=== PATIENT | female | born 1970 | race Caucasian/White ===

== ENCOUNTER 2023-12-20 09:23 | Inpatient (IN) | payer BC ==
[~2023-12-20 09:23] MED LIST: ONDANSETRON 4 MG/2 ML VIAL IVP PRN; TRANEXAMIC 1,000 MG/100ML-NACL 1,000 MG in SALINE 1 100ML.BAG IVPB PRN
[2023-12-20] MEDS ORDERED: LIDOCAINE 1% (10MG/ML) FOR IV START INTRADERMA PRN (09:36)
[2023-12-20] MEDS ORDERED: fentaNYL (PF) 50 MCG/ML 2 ML AMP IV PRN (09:36)
[2023-12-20 10:10] LABS: Glucose,Whole Blood 90 mg/dL (70-110)
--- NOTE | 2023-12-20 10:21 | P.HPOR ---
History of Present Illness H&P Date: 12/15/23 Chief Complaint: CERVICAL SPONDYLOSIS, SPONDYLOLISTHESIS, STENOSIS .D:Date: 12/15/23 : 09:19am .T:Title: EDIS CANTU [facility] HISTORY AND PHYSICAL Age: 53 year Height: 5'1" Weight: 140 lbs BMI: 26.45 kg/m2 Occupation: VAS: 7 IMPRESSION: It was my pleasure to have seen and examined Jennifer. I reviewed the patient's clinical syndrome, physical findings, and imaging studies during the appointment today. It is my impression that the patient has a diagnosis of. 1. C4-5 grade I unstable spondylolisthesis with stenosis 2. C4-7 spondylosis with stenosis 3. BUE Radiculopathy L>R 4. BUE weaknessL>R Spine Surgery Risk Review Ms. Wilkes is presenting for evaluation of neck and left upper extremity pain, left upper extremity numbness and tingling. It was my pleasure to have seen and examined Ms. Wilkes. In our visit today we have had a chance to go over subjective complaints, physical examination findings and treatments including the natural course history without intervention and various interventional options. The patients imaging demonstrates: XR and MRI show C4-5 grade I, unstable, spondylolisthesis with stenosis that is moderate to severe. There is moderate to severe stenoisis noted at C5-6 as well due to disc bulge and spondylosis changes. There is spondylosis noted at C6-7 as well with mild to moderate central stenosis. No fractures or lesions noted. C0-1 and C1-2 are stable. On physical exam, Ms. Wilkes demonstrates: Severe pain with motion of her neck. Myotonic 'Jerks" of her neck that intensify her pain. She has difficulty with fine motor skills, she is dropping things at home and unable to hold onto her pen in the room. She states progressive difficulty with ADLs like brushing her teethe and combing her hair due to pain and weakness. She has 4/5 strength in her UE b/l as well as diminished relfexes throughout her UE and LE. She has Positive Spurlung's as well as dermatomal LT deficits. I have explained to the patient that as their condition progresses it will cause further neurological deficits and eventual paralysis. Based on the patients imaging, physical exam, and the rapid progression and disabling nature of their symptoms, at this time I recommend surgery in the form of a: C4-6 ANTERIOR CERVICAL DISCECTOMY AND FUSION. I discussed the risk and benefits of this procedure at length with Ms. Wilkes. The patient agreed to considered pursuing the procedure abovementioned. Prior to surgery, she should follow up with her PCP (Cardio, ID, IM etc) for clearance. Questions were invited and answered, and the patient wishes to proceed as outlined below. Currently, I am recommendin.C4-6 ANTERIOR CERVICAL DISCECTOMY AND FUSION 2.Review of surgical risks and benefits as well as an educational packet on the proposed surgical procedure. Risks: All surgical procedures come with inherent risks, including those related to positioning, anesthesia, intraoperative findings, and postoperative complications. It is important to understand that surgery does not come with any guarantee of a successful outcome as complications and adverse events are always possible. The patient was given a handout in office today discussing the surgical procedu re and risks associated with the intervention, both of which were discussed with the patient. These risks include but are not limited to the following: * Experiencing same, different or even worse symptoms in back, neck, arms, or legs compared to before surgery. Requiring further surgery or other forms of treatment presently or at some time in the future at same or other levels of the intended spine surgery. On an extreme but fortunately relatively rare basis severe complication such as blindness, stroke, heart attack, temporary and/or permanent nerve injury, paralysis, coma, or may occur, sometimes without known explanation. Surgical complications may include but are not limited to risk of infection, fluid accumulation in the surgical dissection site, including a seroma or hematoma, that requires additional surgery, wound drainage, bleeding, new numbness or weakness, vision changes/loss, spinal fluid leakage, non-healing and/or infected incision, headaches, difficulty or inability to swallow, hoarseness, hemopneumothorax, pneumothorax, impotence, retrograde ejaculation, vaginal dryness; injury to nerves, spinal cord, blood vessels, lymphatics or other vital organs (i.e., bowel injury, injury to the great vessels); heterotopic bone formation; complications related to the hardware such as screws, rods, cages including misplaced hardware, device failure, instrumentation at the wrong spine level, hardware fracture/breakage, or hardware loosening; vertebral failure of the spinal column above or below the newly placed hardware; retained surgical instrumentations or devices and the need for further surgery. * Medical risks of the planned spine surgery include but are not limited to generalized Infections to the whole body or local areas outside of the surgical site (sepsis), heart attack, bleeding, anaphylaxis, meningitis, seizure, epilepsy, hearing loss, burn diop, laceration of the head or other areas of the body, bruising, hypersensitivity of the skin, bladder over distension; allergic reaction; shoulder injury related to positioning; fat, blood and air clots to other areas of the body like heart, lungs, brain; failure of internal organs such as lungs, kidneys, liver and excessive bleeding. If blood transfusions are necessary, note that transfusions may cause intolerance reactions such as anaphylaxis or other complex reactions. Despite best efforts, the results of spine surgery might not heal in terms of bone, soft tissues such as skin, fascia, ligaments, and joints. Additionally, in order to achieve best possible results, spine surgery may be carried out beyond the initially planned levels and involve decompression, fusion including insertion of hardware at levels other than the original intended area of surgical interest change some portions of the procedure in order to ensure the best possible outcomes. With spine surgery and spinal fusion, there are different off label uses of instrumentation (devices, implants and hardware) as well as biological substances (bone morphogenic proteins, demineralized bone matrix) as well as using extra bone from allograft sources (i.e. cadaver bone) or autograft (iliac crest bone, ribs, or the spine itself). The patient has been given information about these practices and their inherent risks and benefits. [facility] is an educational center that serves as a training facility for neurosurgical and orthopedic [employer] and Nursing students. Physician assistants are medically trained surgical providers who function in the outpatient, inpatient, and operating room setting under the direct supervision of the attending surgeon. [facility] has multiple operating rooms with single and overlapping rooms running daily. They currently function under the required guidelines as produced by the [facility] with regards to the overlapping rooms and will continue to comply with changes to this policy as they occur. The requirements include and are complied with as follows: (1) the critical portions of the overlapping rooms will not occur at the same time, (2) the attending physician will be physically present during the critical portions of the procedure and immediately available during the entire case, and (3) a back-up attending is designated should the primary attending not be immediately available. The patient has had a chance to review all the listed information, has been given print outs detailing this information, and has had all his/her questions answered to their satisfaction. It was my pleasure to have seen and examined Ms. Wilkes. In our visit today we have had a chance to go over my understanding of our patient's current condition, the natural course history without intervention and various interventional options. Questions were invited and answered, and the patient wishes to proceed as outlined above. I have seen and examined the patient for 25 minutes and we have spent more than 50% of the time in repeat and detailed counseling about the patient's condition, its natural course history with out and as much as can be predicted with surgery and re-review of various surgical treatment options. In conclusion, Ms. Wilkes requested we proceed with the above suggested surgery and are willing to accept risks and limitations of the suggested surgery as nature of the disease process and our best attempts at treatment for the condition. Thank you again for allowing us to be part of your patient's care. Please don't hesitate to contact me if you have any further questions. FOLLOW UP: Post Procedure PATIENT EDUCATION: Medications Reviewed: YES In our visit today Ms. Wilkes and I have had a chance to go over my understanding of the patient's current condition, the natural course history without intervention and various interventional options. Questions were invited and answered, and the patient wishes to proceed as outlined above. I will be sure to keep you updated after Ms. Wilkes returns here for further follow-up. Thank you again for your referral. Please do not hesitate to contact me if you have any further questions. Signed and authenticated by: Modesto Jacobsen [facility] [address] [place] [id number] This message is confidential, intended only for the named recipient(s) and may contain information that is privileged or exempt from disclosure under applicable law. If you are not the intended recipient(s), you are notified that the dissemination, distribution or copying of this information is strictly prohibited. If you received this message in error, please notify the sender then delete this message. # SIGNED BY Modesto Rosado (GOMaame)12/15/2023 11:56AM Past Medical History Past Medical History: GERD/Reflux, Hypertension Additional Past Medical History / Comment(s): tacycardia,( m clarisse blood disorder) History of Any Multi-Drug Resistant Organisms: None Reported Past Surgical History: Section, Hysterectomy Additional Past Surgical History / Comment(s): evans carpal tunnel, hemorrhoid surgery Past Anesthesia/Blood Transfusion Reactions: No Reported Reaction Additional Past Anesthesia/Blood Transfusion Reaction / Comment(s): no blood tx hx Smoking Status: Current every day smoker - Past Family History Son(s) Family Medical History: Cancer Additional Family Medical History / Comment(s): testicular Father Family Medical History: Cancer Additional Family Medical History / Comment(s): colon Mother Family Medical History: Cancer Additional Family Medical History / Comment(s): unk Medications and Allergies Home Medications Medication Instructions Recorded Confirmed Type Aspirin [Adult Low Dose Aspirin EC] 81 mg PO DAILY 12/16/23 12/20/23 History Baclofen [Lioresal] 20 mg PO BID 12/16/23 12/20/23 History Fexofenadine HCl [Aspen Allergy] 180 mg PO DAILY 12/16/23 12/16/23 History LORazepam [Ativan] 0.5 mg PO DAILY PRN 12/16/23 12/20/23 History Meloxicam [Mobic] 7.5 mg PO DAILY 12/16/23 12/20/23 History Metoprolol Succinate [Metoprolol 25 mg PO DAILY 12/16/23 12/16/23 History Succinate ER] Omeprazole 20 mg PO DAILY 12/16/23 12/16/23 History Venlafaxine HCl [Effexor XR] 225 mg PO DAILY 12/16/23 12/16/23 History Zolpidem [Ambien] 10 mg PO HS PRN 12/16/23 12/20/23 History lamoTRIgine 100 mg PO HS 12/16/23 12/20/23 History lamoTRIgine [LaMICtal ODT] 50 mg PO DAILY 12/16/23 12/16/23 History lisinopriL [Zestril] 10 mg PO DAILY 12/16/23 12/16/23 History traMADol HCL 2 tab PO TID 12/16/23 12/16/23 History Allergies Allergy/AdvReac Type Severity Reaction Status Date / Time hydromorphone [From Dilaudid] Allergy Rash/Hives Verified 12/20/23 10:00 Sulfa (Sulfonamide AdvReac Nausea Verified 12/20/23 10:00 Antibiotics) Physical Examination Osteopathic Statement: *. No significant issues noted on an osteopathic structural exam other than those noted in the History and Physical/Consult.
[2023-12-20] MEDS: ONDANSETRON 4 MG/2 ML VIAL IVP ONE (10:27)
[2023-12-20] MEDS: DEXAMETHASONE SOD PHOSPHATE 4 MG/ML 1 ML VIAL IV ONE (10:27)
[2023-12-20] MEDS: ACETAMINOPHEN TAB 500 MG TAB PO PRN (10:27)
[2023-12-20] MEDS: LACTATED RINGERS 1,000 ML IV SCH (10:27)
[2023-12-20] MEDS: GABAPENTIN 300 MG CAP PO PRN (10:27)
[2023-12-20] MEDS: IV FLUID CONTINUATION 1,000 ML IV ONE ×2 (10:32)
[2023-12-20] MEDS: MIDAZOLAM 2 MG/2 ML VIAL IV ONE (10:38)
[2023-12-20] MEDS ORDERED: LIDOCAINE 1% INJ 10MG/ML (20 ML MDV) ONE (10:49)
[2023-12-20] MEDS ORDERED: ROCURONIUM 10 MG/ML (5 ML VIAL) IV ONE (10:49)
[2023-12-20] MEDS ORDERED: NEOSTIGMINE 1 MG/ML 10 ML VIAL ONE (10:49)
[2023-12-20] MEDS ORDERED: GLYCOPYRROLATE 0.2 MG/ML 2 ML VIAL ONE (10:49)
[2023-12-20] MEDS ORDERED: TRANEXAMIC 1,000 MG/100ML-NACL PREMIX BAG ONE (10:49)
[2023-12-20] MEDS ORDERED: KETOROLAC 15 MG/ML 1 ML VIAL ONE (10:49)
[2023-12-20] MEDS ORDERED: SUCCINYLCHOLINE CHLORIDE 200 MG/10 ML VIAL IV ONE (10:49)
[2023-12-20] MEDS ORDERED: NALOXONE 0.4 MG/ML 1 ML VIAL ONE (10:49)
[2023-12-20] MEDS ORDERED: PHENYLEPHRINE 10 MG/ML VIAL ONE (10:49)
[2023-12-20] MEDS ORDERED: ePHEDrine 50 MG/ML 1 ML VIAL ONE (10:49)
[2023-12-20] MEDS ORDERED: PROPOFOL 10 MG/ML 20 ML VIAL IV ONE (10:49)
[2023-12-20] MEDS ORDERED: fentaNYL (PF) 50 MCG/ML 2 ML AMP ONE (10:49)
[2023-12-20] MEDS: THROMBIN (BOVINE) 5,000 UNIT VIAL TOPICAL ONE (11:40)
[2023-12-20] MEDS: LACTATED RINGERS 1,000 ML IV ONE (13:23)
--- NOTE | 2023-12-20 13:40 | P.OP ---
Date of Procedure: 12/20/23 Preoperative Diagnosis: Current Active Problems Bilateral arm weakness (Acute) Cervical radiculopathy (Acute) Cervical stenosis of spine (Acute) Neck pain (Acute) Spondylolisthesis, cervical region (Acute) Postoperative Diagnosis: Current Active Problems Bilateral arm weakness (Acute) Cervical radiculopathy (Acute) Cervical stenosis of spine (Acute) Neck pain (Acute) Spondylolisthesis, cervical region (Acute) Procedure(s) Performed: 1. C4-5 ANTERIOR CERVICAL DISCECTOMY AND FUSION 2. C5-6 ANTERIOR CERVICAL DISCECTOMY AND FUSION 3. C6-7 ANTERIOR CERVICAL DISCECOMTY AND FUSION 4. C4-7 ANTERIOR INSTRUMENTATION 5. C4-5, C5-6 AND C6-7 INSERTION OF BIOMECHANICAL DEVICE, CAGES USE OF IONM USE OF IO MICROSCOPE 39509, 73045, 34067, 85854, 08254, 52803, 95320 Implants: -FELIX CASCADIA CAGES 8MM, 7 DEG, WIDE/MED X3 -OZARK ANTERIOR INSTRUMENTATION, 14 MM SCREWS -MAGNATOS, AUTOGRAFT Anesthesia: DAMARISA Surgeon: Modesto Rosado [employer] Dumping Equipment Operator #1: Erendira Leblanc (WAS PRESENT AND ASSISTED WITH ALL ASPECTS OF THE CASE FROM POSITION TO DRESSING PLACEMENT. ) Estimated Blood Loss (ml): 25 IV fluids (ml): 1,300 Urine output (ml): 0 Pathology: none sent Condition: stable Disposition: PACU Indications for Procedure: Ms. Wilkes is presenting for evaluation of neck and left upper extremity pain, left upper extremity numbness and tingling. It was my pleasure to have seen and examined Ms. Wilkes. In our visit today we have had a chance to go over subjective complaints, physical examination findings and treatments including the natural course history without intervention and various interventional options. The patients imaging demonstrates: XR and MRI show C4-5 grade I, unstable, spondylolisthesis with stenosis that is moderate to severe. There is moderate to severe stenoisis noted at C5-6 as well due to disc bulge and spondylosis changes. There is spondylosis noted at C6-7 as well with mild to moderate central stenosis. No fractures or lesions noted. C0-1 and C1-2 are stable. On physical exam, Ms. Wilkes demonstrates: Severe pain with motion of her neck. Myotonic 'Jerks" of her neck that intensify her pain. She has difficulty with fine motor skills, she is dropping things at home and unable to hold onto her pen in the room. She states progressive difficulty with ADLs like brushing her teethe and combing her hair due to pain and weakness. She has 4/5 strength in her UE b/l as well as diminished relfexes throughout her UE and LE. She has Positive Spurlung's as well as dermatomal LT deficits. I have explained to the patient that as their condition progresses it will cause further neurological deficits and eventual paralysis. Based on the patients imaging, physical exam, and the rapid progression and disabling nature of their symptoms, at this time I recommend surgery in the form of a: C4-6 ANTERIOR CERVICAL DISCECTOMY AND FUSION. I discussed the risk and benefits of this procedure at length with Ms. Wilkes. The patient agreed to considered pursuing the procedure abovementioned. Prior to surgery, she should follow up with her PCP (Cardio, ID, IM etc) for clearance. Questions were invited and answered, and the patient wishes to proceed as outlined below. I discussed with the patient and her pre op the possibility of adding C6-7 into the construct due to the instability potential at this level as well as the severe collapse and foraminal stenosis. They were ammendable to this and were comfortable with this possibility and agreed to it. They state they would like me to do what is necessary to help her. I agree and will assess appropriately. Currently, I am recommendin.C4-6 POSSIBLY C7 ANTERIOR CERVICAL DISCECTOMY AND FUSION Description of Procedure: C4-7 ACDF The patient was seen and examined in the preoperative area. All preoperative protocols were followed. Informed consent was obtained, risks and benefits of the procedure were discussed at length. Risks including bleeding infection damage to the surrounding tissue and risk of reoperation were discussed with the patient. Risk of anesthesia up to and including was discussed with the patient. These are outlined in the risk review. They were willing to accept these risks and all the risks of surgery. The patient was given a weight-based dose of antibiotics in the form of 2 g Ancef. The patient was seen and evaluated by the anesthesia team who deemed them fit for surgery. The site was marked, the patient was willing to proceed with the procedure. The patient was transferred to the operative suite by the Department of anesthes ia. They were then drifted off to sleep by the department anesthesia and GETA was performed. The patient tolerated this well. Gonzalez catheter was placed by nursing staff, a-traumatically. Once confirmation of lines and ventilation the patient was transferred to a Supine Jhon table very carefully. All bony prominences including wrists, elbows, axilla, chest, hips, and thighs, and feet were padded very well. Special attention was paid to the genitalia, and these were padded accordingly. SCDs were placed on bilateral lower extremities and were connected. Arms were well padded and placed at their side thumbs up. Once in position, again we confirmed good ventilation capabilities and that lines were running appropriately. The patients Cervical spine was then exposed. 1010s were placed outlining the incision site. Standard alcohol was used to clean the incision site and allowed to dry. C-arm was used to bio-rodo the patient and confirm level for incision which was marked with a skin marker. Operative briefing was performed with all teams and everyone in agreement to proceed. The patient was then prepped and draped in a normal sterile fashion. Timeout was then performed, and all parties agreed with the procedure to be performed. Transverse skin incision was then made on the right side of the patient's neck 3 cm and dissection taken down to the platysma which was split transversely. Sub platysma flap was made, and interval identified between SCM and medial structures. Omohyoid was visualized and protected. Blunt dissection taken down to the anterior cervical fascia which was identified. Blunt probe was then placed and lateral image taken which confirmed levels for operation. These levels were then marked with a bovi. Subperiosteal dissection of the longiss imus muscles were then done over these levels identifying uncovertebral joints bilaterally. Retractor was then placed deep to these muscles and held in place with a bed arm. We evaluated the levels to be done and it was determined due to the severe collapse at C6-7 as well as the instability showing at C6-7 clinically that this would be added per patient request. Starting at C6-7 then, Pace pins were placed into C6 and C7 and gentle distraction taken out over the levels. Jason rongeur used to remove disc material. Operating microscope brought in for visualization. Complete discectomy performed at this level with curette, rongure and pituitary. High speed pearl used to remove osteophytes anteriorly and posteriorly until PLL was identified. 6-0 up curette then used to identify the canal and resect the PLL. 2-0 and 3-0 Kerrison used then to remove PLL and disc herniation and performed b/l foraminotomies. Once good decompression was accomplished, meticulous hemostasis was performed. Sizers were then placed under lateral fluoroscopy until the desired height and lordosis. Cage was then selected, packed with autograft and allograft and placed under lateral imaging. Once in good position it was tested and stable. Motors run before and after cage placement were stable. The wound was irrigated, and autograft placed lateral to the cage anteriorly for fusion. Pace pin was then removed from C7 and placed into C5. Gentle distraction taken out over C5-6 now. Complete discectomy done at C5-6 as described including decompression, b/l foraminotomies and PLL resection. Burring of endplates was minimal, osteophytes removed as described. Spacers were then sized and placed under lateral imaging. Cage selected, packed with graft and placed under lateral images. Once in position, meticulous hemostasis performed, and motors remained stable before and after cage placement. AP image confirmed good placement of cages. Wound was irrigated. Pace pin was then removed from C6 and placed into C4. Gentle distraction taken out over C4-5 now. Complete discectomy done at C4-5 as described including decompression, b/l foraminotomies and PLL resection. Burring of endplates was minimal, osteophytes removed as described. Spacers were then sized and placed under lateral imaging. Cage selected, packed with graft and placed under lateral images. Once in position, meticulous hemostasis performed, and motors remained stable before and after cage placement. AP image confirmed good placement of cages. Wound was irrigated. A separate, non-integrated plate was then selected and sized under lateral image. The plate was then placed with screws. Fixed screws drilled into C7 and C6 b/l and screws placed. Then into C5 and finally C4 with variable screws. All locking mechanisms were set, and all screws had good purchase. Final AP and lateral images taken confirmed good placement of hardware and good reduction and jew of height. The wound was then irrigated copiously with NSS. Surgicel placed deep in the wound. A deep drain placed out a separate incision and sewed into place. Layered closure then performed with 3-[address] atysma and subQ tissue. 4-0 Strata fix in the subcuticular tissue. The wound was then cleaned, and dried and skin glue placed. Once glue dried on Opifoam was placed. The patient was then transferred back to their hospital bed a-traumatically. The drain continued to hold suction. They were placed in a soft collar. They were then awakened by the department of anesthesia having tolerated the procedure well without complications.
[2023-12-20] MEDS ORDERED: bisacodyL 10 MG SUPP RECTAL PRN (13:50)
[2023-12-20] MEDS ORDERED: ONDANSETRON 4 MG/2 ML VIAL IVP PRN (13:50)
[2023-12-20] MEDS ORDERED: MORPHINE SULFATE 2 MG/ML SYRINGE IVP PRN (13:50)
[2023-12-20] MEDS ORDERED: MAGNESIUM HYDROXIDE 2,400 MG/30 ML CUP PO PRN (13:50)
[2023-12-20] MEDS ORDERED: HYDROcodone/APAP 5-325MG 1 EACH TAB PO PRN (13:50)
[2023-12-20] MEDS: MORPHINE SULFATE 4 MG/ML SYRINGE IVP PRN (14:36)
--- NOTE | 2023-12-20 15:21 | XR ---
EXAMINATION TYPE: XR cervical spine limited, FL guidance operating room Intraoperative/procedural flu oroscopic services were provided. Total fluoroscopy time is 36 seconds with a total of 6 submitted im ages to PACS. Please see the operative/procedural note for further details. DAP: 0.4694 Gycm2
[2023-12-20] MEDS: CYCLOBENZAPRINE 5 MG TAB PO PRN (16:27)
[2023-12-20] MEDS: droPERidol 5 MG/2 ML VIAL IVP ONE (18:01)
[2023-12-20] MEDS: KETOROLAC 15 MG/ML 1 ML VIAL IVP SCH (18:01)
[2023-12-20] MEDS: HYDROcodone/APAP 10-325MG 1 EACH TAB PO PRN (18:02)
--- NOTE | 2023-12-20 19:15 | CT ---
EXAMINATION TYPE: CT cervical spine wo con DATE OF EXAM: 12/20/2023 COMPARISON: None HISTORY: 53-year-old female s/p C4-C7 ACDF TECHNIQUE: Contiguous axial scanning of the cervical spine without IV contrast. Coronal and sagittal reconstructions performed. CT DLP: 277.7 mGycm Automated exposure control for dose reduction was used. FINDINGS: No craniocervical junction abnormality, predental space widening, or prevertebral soft tissue swellin g. Post surgical change of C4-C7 ACDF utilizing a right anterior approach with surgical drain in place. Orthopedic hardware appears uncomplicated. Trace grade 1 anterolisthesis below the fusion at C7-T1. Scattered mild facet and uncovertebral joint arthropathy mid to lower cervical spine. Mild left neuroforaminal narrowing at C3-C4. IMPRESSION: UNCOMPLICATED POSTOPERATIVE APPEARANCE C4-C7 ACDF. TRACE GRADE 1 RETROLISTHESIS BELOW THE FUSION AT C 7-T1.
[2023-12-20] MEDS: ZOLPIDEM 5 MG TAB PO PRN (21:25)
[2023-12-20] MEDS: lamoTRIgine 100 MG TAB PO SCH (21:25)
[2023-12-21] MEDS ORDERED: ZOLPIDEM 5 MG TAB PO PRN (01:10)
--- NOTE | 2023-12-21 02:32 | P.CONS ---
History of Present Illness - Reason for Consult Consult date: 12/20/23 - History of Present Illness Patient is a 53-year-old female with a PMH of hypertension and GERD who who was admitted for an elective cervical discectomy and fusion. The patient underwent the procedure earlier today and was seen postoperatively on the surgical unit. She reported ongoing 8 out of 10 neck pain. She denied any additional complaints. Denied experiencing headaches, chest discomfort, shortness of breath, fever, chills, cough, nausea, vomiting, abdominal pain, diarrhea. Reports compliance with all home medications. Review of systems: Pertinent positives and negatives as discussed in HPI, a complete review of systems was performed and all other systems are negative. Physical examination: Vital signs reviewed General: non toxic, no distress, appears at stated age, normal weight Derm: no unusual rashes/lesions, warm Head: atraumatic, normocephalic, symmetric Eyes: EOMI, no lid lag, anicteric sclera, pupils equal round reactive to light ENT: Nose and ears atraumatic Neck: No cervical lymphadenopathy, trachea midline, supple, neck brace in place Mouth: no lip lesion, mucus membranes moist Cardiovascular: S1S2 reg, no murmur, positive dorsalis pedis pulse bilateral, no edema Lungs: CTA bilateral, no rhonchi, no rales, no accessory muscle use Abdominal: soft, nontender to palpation, no guarding Ext: muscle strength 5 out of 5 in all 4 extremities grossly, no gross muscle atrophy, no contractures, Neuro: CN II-XI grossly intact, no gross focal neuro deficits Psych: Alert, oriented, appropriate affect Assessment: Chronic conditions: Hypertension, GERD Status post cervical discectomy and fusion Plan: Resume patient's home metoprolol, Prilosec, lisinopril, and Effexor Defer management of DVT prophylaxis and pain control to primary surgery service We appreciate this opportunity to be involved in this patient's care. We will follow the patient with you. For any further questions, please not hesitate to contact the sound inpatient team. Past Medical History Past Medical History: GERD/Reflux, Hypertension Additional Past Medical History / Comment(s): tacycardia,( m clarisse blood disorder) History of Any Multi-Drug Resistant Organisms: None Reported Past Surgical History: Section, Hysterectomy Additional Past Surgical History / Comment(s): evans carpal tunnel, hemorrhoid surgery, cervical fusion 12/20/23 Past Anesthesia/Blood Transfusion Reactions: No Reported Reaction Additional Past Anesthesia/Blood Transfusion Reaction / Comm: no blood tx hx Past Psychological History: Anxiety, Depression Smoking Status: Current every day smoker Past Alcohol Use History: Occasional Additional Past Alcohol Use History / Comment(s): 1/2 pk/day/30 yrs Past Drug Use History: Marijuana Additional Drug Use History / Comment(s): none for 24 houjrs prior to procedure - Past Family History Son(s) Family Medical History: Cancer Additional Family Medical History / Comment(s): testicular Father Family Medical History: Cancer Additional Family Medical History / Comment(s): colon Mother Family Medical History: Cancer Additional Family Medical History / Comment(s): unk Medications and Allergies Home Medications Medication Instructions Recorded Confirmed Type Aspirin [Adult Low Dose Aspirin EC] 81 mg PO DAILY 12/16/23 12/20/23 History Baclofen [Lioresal] 20 mg PO BID 12/16/23 12/20/23 History Fexofenadine HCl [Aspen Allergy] 180 mg PO DAILY 12/16/23 12/16/23 History LORazepam [Ativan] 0.5 mg PO DAILY PRN 12/16/23 12/20/23 History Meloxicam [Mobic] 7.5 mg PO DAILY 12/16/23 12/20/23 History Metoprolol Succinate [Metoprolol 25 mg PO DAILY 12/16/23 12/16/23 History Succinate ER] Omeprazole 20 mg PO DAILY 12/16/23 12/16/23 History Venlafaxine HCl [Effexor XR] 225 mg PO DAILY 12/16/23 12/16/23 History Zolpidem [Ambien] 10 mg PO HS PRN 12/16/23 12/20/23 History lamoTRIgine 100 mg PO HS 12/16/23 12/20/23 History lamoTRIgine [LaMICtal ODT] 50 mg PO DAILY 12/16/23 12/16/23 History lisinopriL [Zestril] 10 mg PO DAILY 12/16/23 12/16/23 History traMADol HCL 2 tab PO TID 12/16/23 12/16/23 History Allergies Allergy/AdvReac Type Severity Reaction Status Date / Time hydromorphone [From Dilaudid] Allergy Rash/Hives Verified 12/20/23 17:53 Sulfa (Sulfonamide AdvReac Nausea Verified 12/20/23 17:53 Antibiotics) Physical Exam Vitals: Vital Signs Temp Pulse Pulse Resp BP BP Pulse Ox 12/20/23 19:59 98 F 80 17 150/91 97 12/20/23 17:40 98.9 F 87 16 167/92 97 12/20/23 16:30 68 20 134/70 94 L 12/20/23 16:15 88 18 116/62 95 12/20/23 15:45 75 20 116/62 94 L 12/20/23 15:15 82 16 148/72 96 12/20/23 14:54 84 16 152/67 99 12/20/23 14:39 81 16 152/73 100 12/20/23 14:24 80 16 152/73 100 12/20/23 14:09 97 F L 86 20 154/81 100 12/20/23 09:55 97.6 F 61 16 154/76 98 Intake and Output 12/20/23 12/20/23 12/21/23 14:59 22:59 06:59 Intake Total 2850 Output Total 25 Balance 2825 Intake: IV 2850 Output: Estimated Blood Loss 25 Other: # Voids 1 Weight 59.3 kg 59.3 kg
[2023-12-21 06:01] LABS: Basophils % (A) 0 %; Eosinophils # (A) 0.1 k/uL (0-0.7); Eosinophils % (A) 1 %; HCT 34.9 % (34.0-46.0); HGB 11.6 gm/dL (11.4-16.0); Lymphocytes # (A) 2.8 k/uL (1.0-4.8); Lymphocytes % (A) 29 %; MCH 32.6 pg (25.0-35.0); MCHC 33.2 g/dL (31.0-37.0); Mean Platelet Volume 9.1; Monocytes # (A) 0.6 k/uL (0-1.0); Monocytes % (A) 6 %; Neutrophils % (A) 62 %; Platelet Count 192 k/uL (150-450); RBC 3.57 m/uL (3.80-5.40); WBC 9.7 k/uL (3.8-10.6)
[2023-12-21 06:17] LABS: African American GFR (CKD) >90 (>60 ml/min/1.73 sqM); Anion Gap 1 mmol/L; Blood Urea Nitrogen 16 mg/dL (7-17); Calcium 8.4 mg/dL (8.4-10.2); Carbon Dioxide 29 mmol/L (22-30); Chloride 108 mmol/L (98-107); Glucose 92 mg/dL (74-99); Non-African American GFR(CKD) 84 (>60 ml/min/1.73 sqM); Sodium 138 mmol/L (137-145)
[2023-12-21 07:44] VITALS: BP 123/81; PULSE 59; RESP 14; TEMP 98.3
[2023-12-21] MEDS: METOPROLOL SUCCINATE (ER) 25 MG TAB.ER.24H PO SCH (07:50)
[2023-12-21] MEDS: lisinopriL 10 MG TAB PO SCH (07:56)
[2023-12-21] MEDS: PANTOPRAZOLE 40 MG TABLET PO SCH (07:56)
[2023-12-21] MEDS: VENLAFAXINE HCL ER 75 MG CAP PO SCH (07:56)
[2023-12-21] MEDS: SENNOSIDES-DOCUSATE SODIUM 1 EACH TAB PO SCH (07:56)
--- NOTE | 2023-12-21 09:09 | P.PN ---
Subjective Progress Note Date: 12/21/23 Principal diagnosis: 1. C4-5 grade I unstable spondylolisthesis with stenosis 2. C4-7 spondylosis with stenosis 3. BUE Radiculopathy L>R 4. BUE weaknessL>R Patient seen and examined this morning. Patient is resting comfortably in bed. Patient does report that she has been ambulatory to the restroom without difficulty. Surgical incision to the anterior cervical spine, edges are well- approximated with glue intact. VASQUEZ drain has been removed and new surgical dressing applied. Soft cervical collar is intact. Patient reports that her pa in is managed on current regimen. She does report improvement in her bilateral upper extremity radiculopathy since the procedure. Patient states that she feels comfortable with going home later today. Discharge instructions have been reviewed and discussed. No acute concerns. Objective - Vital Signs Vital signs: Vital Signs Temp 98.3 F 12/21/23 06:50 Pulse 59 L 12/21/23 06:50 Resp 14 12/21/23 06:50 BP 123/81 12/21/23 06:50 Pulse Ox 97 12/21/23 06:50 FiO2 Intake & Output 12/20/23 12/21/23 12/21/23 18:59 06:59 18:59 Intake Total 2850 480 Output Total 25 Balance 2825 480 Weight 59.3 kg Intake: IV 2850 Oral 480 Output: Estimated Blood Loss 25 Other: Voiding Method Toilet # Voids 1 2 - Labs CBC & Chem 7: 12/21/23 05:05 12/21/23 05:05 Labs: Abnormal Lab Results - Last 24 Hours (Table) 12/21/23 12/21/23 Range/Units 05:05 05:05 RBC 3.57 L (3.80-5.40) m/uL Chloride 108 H (98-107) mmol/L Assessment and Plan Assessment: Postop day 1: C4-C7 ACDF 1. C4-5 grade I unstable spondylolisthesis with stenosis 2. C4-7 spondylosis with stenosis 3. BUE Radiculopathy L>R 4. BUE weaknessL>R Plan: -Appreciate cognos consultant and team management. -Activity: Ambulate QID, OOB all meals, up and about, limit lifting bending twisting to less than 5 lbs. Use walker or cane if needed for stability. -Daily PT/OT, increase ambulation strength and balance. -Soft cervical collar at all times, may remove for showers. -Pain control: Adequate at this time -Meds: reviewed -GI ppx: senna, Miralax -DVT PPX: OK to restart Heparin tonight -Hygiene: Shower today. Maintain dressing clean and dry. -Encourage IS 10x/hr -Dispo: Anticipate discharge home later today with homecare *I reviewed and discussed this case with my attending Dr. Rosado, whom has reviewed this chart and films and is in agreement with assessment and plan of care as outlined above. I have personally seen and examined the patient, performed the documentation and the assessment and plan as written. Number of minutes spent on the visit: 20m.
--- NOTE | 2023-12-21 09:34 | P.DS ---
Providers Date of admission: 12/20/23 Expected date of discharge: 12/21/23 Attending physician: Modesto Rosado DO Consults: 12/20/23 13:53 Consult Physician Routine Consulting Provider: Gian Delong Consult Reason/Comments: Medical Management Do you want consulting provider notified?: Yes Primary care physician: [id number] Course: Hospital Course: The patient was evaluated preoperatively and found to have the diagnosis of cervical spondylosis, cervical myelopathy. They underwent appropriate preoperative care and were willing to undergo the intended procedure. They underwent a successful C4-C7 ACDF, were recovered appropriately and sent to the floor. While on the floor they worked with physical therapy, occupational therapy and nursing to enhance their recovery experience. Their pain was well controlled through their stay and they were started on appropriate medications, DVT ppx modalities, activity and dietary needs. Daily labs were monitored closely, and transfusions were only used when necessary. Medicine as well as other consulting services have made their input and have helped with our team approach and multidisciplinary care. PT milestones have been met and passed and they have made the recommendation of home for this patient and treating providers agree with this care path. The patient will be discharged home with appropriate medications, instructions and follow-up information and in stable condition. Patient Condition at Discharge: Good Plan - Discharge Summary Discharge Rx Participant: No New Discharge Prescriptions: New cefaDROXiL [Duricef] 500 mg PO Q12HR #10 cap Cyclobenzaprine [Flexeril] 5 mg PO TID PRN #40 tablet PRN Reason: Muscle Spasm HYDROcodone/APAP 10-325MG [[place] 10-325] 1 tab PO Q4-6H PRN #40 tab PRN Reason: Pain Sennosides/Docusate Sodium [Senna Plus 8.6-50 mg Tablet] 1 each PO DAILY PRN #20 tab PRN Reason: Constipation No Action lamoTRIgine [LaMICtal ODT] 50 mg PO DAILY traMADol HCL 2 tab PO TID Zolpidem [Ambien] 10 mg PO HS PRN PRN Reason: Insomnia Meloxicam [Mobic] 7.5 mg PO DAILY Omeprazole 20 mg PO DAILY LORazepam [Ativan] 0.5 mg PO DAILY PRN PRN Reason: Anxiety Aspirin [Adult Low Dose Aspirin EC] 81 mg PO DAILY lamoTRIgine 100 mg PO HS Fexofenadine HCl [Aspen Allergy] 180 mg PO DAILY lisinopriL [Zestril] 10 mg PO DAILY Venlafaxine HCl [Effexor XR] 225 mg PO DAILY Metoprolol Succinate [Metoprolol Succinate ER] 25 mg PO DAILY Baclofen [Lioresal] 20 mg PO BID Discharge Medication List Aspirin [Adult Low Dose Aspirin EC] 81 mg PO DAILY 12/16/23 [History] Baclofen [Lioresal] 20 mg PO BID 12/16/23 [History] Fexofenadine HCl [Aspen Allergy] 180 mg PO DAILY 12/16/23 [History] LORazepam [Ativan] 0.5 mg PO DAILY PRN 12/16/23 [History] Meloxicam [Mobic] 7.5 mg PO DAILY 12/16/23 [History] Metoprolol Succinate [Metoprolol Succinate ER] 25 mg PO DAILY 12/16/23 [History] Omeprazole 20 mg PO DAILY 12/16/23 [History] Venlafaxine HCl [Effexor XR] 225 mg PO DAILY 12/16/23 [History] Zolpidem [Ambien] 10 mg PO HS PRN 12/16/23 [History] lamoTRIgine 100 mg PO HS 12/16/23 [History] lamoTRIgine [LaMICtal ODT] 50 mg PO DAILY 12/16/23 [History] lisinopriL [Zestril] 10 mg PO DAILY 12/16/23 [History] traMADol HCL 2 tab PO TID 12/16/23 [History] Cyclobenzaprine [Flexeril] 5 mg PO TID PRN #40 tablet 12/21/23 [Rx] HYDROcodone/APAP 10-325MG [[place] 10-325] 1 tab PO Q4-6H PRN #40 tab 12/21/23 [Rx] Sennosides/Docusate Sodium [Senna Plus 8.6-50 mg Tablet] 1 each PO DAILY PRN #20 tab 12/21/23 [Rx] cefaDROXiL [Duricef] 500 mg PO Q12HR #10 cap 12/21/23 [Rx] Follow up Appointment(s)/Referral(s): Modesto Rosado DO [Doctor of Osteopathic Medicine] - 1 Week Activity/Diet/Wound Care/Special Instructions: Spine Discharge and Recovery Instructions Date of Surgery: 12/20/2023 Diagnosis: Cervical spondylosis, cervical myelopathy Procedure: C4-C7 ACDF Medications: See medication list All medication refills should be obtained through your primary care doctor or your clinic spine surgeon. Please discuss prescription refills at your follow up appointment. Do not call the hospital for medication refills. Activity: Encourage ambulation with assist of walker, Up and about 6-8x daily PT/OT daily work on balance, strength and mobility Up in chair with all meals Shower daily Brace: Use brace when up and about, do not wear in bed or shower Dressing: Leave your dressing in place for a total of 3 days post operatively. Then you may remove your dressing and leave open to air. Keep the area clean and if not able to keep area clean, then cover with sterile gauze and tape. Showering: You may shower 3 days after your procedure allowing soap and water to run over incision. Do not scrub. Do not soak. Blot dry. Follow up: Please confirm a follow up appointment with your surgeon 2 weeks post operatively. Please make an appointment to follow up with your PCP in 1-2 weeks after surgery for evaluation `3 phase, 3-week plan POST OP WEEKS 1-3 1. Lifting/carrying/pushing/pulling limited to less than 5 pounds. 2. Do not sit for longer than 15 minutes at one time. Get up and walk around. Prolonged sitting is NOT advised. If you lay down, see if you can tolerate laying down on you front (belly side) 3. Walk for periods of 15 minutes = 1 mile but no longer; do it multiple times times each day. 4. Ice your low back after activity. POST OP WEEKS 3-6 1. Lifting limited to less than 20 pounds. 2. Do not sit for longer than 30 minutes at a time. Frequently change positions. Use a sit-to stand workstation or take frequent breaks from sitting if you have returned to work. 3. Walk for 30 minutes each day. If possible, do these three or more times a day POST OP WEEKS 6+ At your 6-week appointment we will give you a physical therapy referral to focus on a core stabilization and strengthening program. You should also work on leg & buttock strengthening, hamstring & quadriceps stretching, and continue a low impact aerobic activity program such as swimming, walking, or riding a stationary bicycle. During the initial 6 weeks after your surgery, you are at the highest risk of re-injuring your spine. You should generally avoid BLTs (bending, lifting and twisting combination motions) and follow the above guidelines to reduce the chance of reinjury. You can anticipate post op appointments in our office at approximately 3 weeks and 6 weeks after your surgery. INCISION CARE: If your incision is not draining you do NOT need to cover it with a dressing. Keep your incision clean, dry and intact. In most cases, we apply skin glue, octavio or sutures to the incision at the time of surgery. This will be like a crust or have the appearance of a scab and will fall off in time on its own. The stitches or octavio need to be removed at 3 weeks post op appointment. You may begin to shower 3 days after surgery (this allows the glue to zamudio well). However, please avoid scrubbing the incision site or peeling off any of the skin glue. This will ensure optimal healing of your incision. Also, during this time avoid soaking the incision area in water - this includes swimming pools, hot tubs or baths. No ointments, lotions or oils on the incision until your surgeon allows. Leave octavio, sutures or glue in place. Neurological dysfunction that comes on suddenly can also be a sign of a stroke. Below some common symptoms of a stroke are listed: B - balance difficulty such as sudden onset walking or leaning to one side - NEW E - eye problem such as sudden double vision or trouble seeing on one side - NEW F - Facial weakness or numbness on one side - NEW A - Arm or leg weakness or numbness on one side - NEW S - Slurred speech or difficulty with word finding - NEW T - Time is BRAIN! Call 911 as soon as you recognize these symptoms Diet: Consume a regular diet rich in vegetables and lean protein such as chicken or fish. You should consume in a ratio of approximately 20% fats|40% carbohydrates|40%protein. Vegetables, sweet potatoes, brown rice or quinoa are examples of good carbohydrates. Chips, white bread, cookies and sweets/sugar are examples of bad carbohydrates. Limit your bad carbs, go wild with good carbs. "Life's Simple 7" Guidelines as per [place] [employer] These will help you reclaim your life after surgery and spiral tube winder helper in your recovery, keeping in mind your restrictions. (1) Get Active. Physical activity can help people lose weight, control high blood pressure and cholesterol, feel emotionally better, and sleep better. (2) Control Cholesterol. Avoid a diet high in saturated fat, trans fat, & cholesterol. Limit whole milk & cream, ice cream, butter, egg yolks, processed meats (like sausage and hot dogs), and fatty meats. Choose healthy foods that are low in saturated fat, trans fat and cholesterol which include: Fruits and vegetables, fiber rich grain products (like whole grain pasta and brown rice), lean meat such as chicken, fish, nuts, seeds, and legumes. (3) Eat Better. Eat small portions. Shop at the grocery with a list and do not stray from it. Tips for a healthy diet include: Limit sodium intake to less than 1500mg daily, avoid prepackaged, processed, and fast foods, choose a diet rich in fruits, vegetables, and whole grain, high fiber foods, and limit saturated & cholesterol in your diet. (4) Manage Blood Pressure. If you have high blood pressure, you should have a cuff at home so that you can check your blood pressure regularly. Be sure you have a good cuff. An arm one is generally better than a wrist one. Bring the cuff to a doctor's appointment to validate that the measurements that your cuff are taking are accurate. Take your blood pressure twice daily when you are sitting down and relaxing. Record the numbers in a log and bring this log with you to your doctors' appointments. (5) Lose Weight if your BMI is above 25. A healthy BMI is between 19-25. To calculate Your BMI, you may use a Standard BMI Calculator on the NIH BMI website: <www.nhlbi.nih.gov/guidelines/obesity/BMI/bmicalc.htm>. Weigh oneself daily. If you are overweight, set a goal to lose weight. A pound a week loss if needed is a good target. (6) Reduce Blood Sugar. Limit foods and liquids with "added sugars." (Added sugars include sucrose, fructose, glucose, maltose, dextrose, high fructose corn syrup, corn syrup, concentrated fruit juice and honey). (7) Stop Smoking. If you smoke, quitting smoking is one of the best things that you can do for your health. Smoking increases your risk of heart attack, stroke, and peripheral vascular disease, which is a build-up of plaque in your arteries. Please discard all the cigarettes and lighters in your house. Have a plan for what you will do when you have the urge to smoke. Direct and second- hand smoke shortens your life as well as the lives of your family, friends and others around you. For your health and the health of those around you, please consider quitting! Proper Bending Body Mechanics: Maintain a wide stance with one foot slightly in front of the other. Keep your back straight. Bend utilizing the strength in your hips and knees. Do not bend at the waist. Maintain the lifted object at your waist-level close to your body. Avoid lifting weight that causes immediately pain or pain anywhere in the body afterwards. Smoking/Nicotine If there was ever one thing that you could do to increase your overall health, decrease your risk of cardiovascular problems by about 39% the second you make the choice, it is to STOP SMOKING. Your body's most instant gratification is the second you stop smoking. We have all heard the studies, read the articles but it is true, smoking is extremely bad for your overall health, and moreover it is detrimental to your bone health. Nicotine, IN ANY FORM, kills bone cells, prevents your body from healing fractures, and significantly prolongs healing after surgery. In spine surgery specifically, it increases your risk of not healing your bones to create a fusion and increases your risk of having a revision surgery due to this up to 60%. I know it is hard. I know it feels impossible. But there are ways. Take control of your life. We are here to help you through it. And when you are ready, ask us and we can direct you to help if you desire. Use the START Plan to Quit Smoking (please visit the Helpguide.org website listed below for more information): S = Set a quit date. Choose a date within the next 2 weeks, so you have enough time to prepare without losing your motivation to quit. If you mainly smoke at work, quit on the weekend, so you have a few days to adjust to the change. T = Tell family, friends, and co-workers that you plan to quit. Let your friends and family in on your plan to quit smoking and tell them you need their support and encouragement to stop. Look for a quit nadine who wants to stop smoking as well. You can help each other get through the rough times. A = Anticipate and plan for the challenges you'll face while quitting. Most people who begin smoking again do so within the first 3 months. You can help yourself make it through by preparing ahead for common challenges, such as nicotine withdrawal and cigarette cravings. R = Remove cigarettes and other tobacco products from your home, car, and work. Throw away all your cigarettes (no emergency pack!), lighters, ashtrays, and matches. Wash your clothes and freshen up anything that smells like smoke. Shampoo your car, clean your drapes and carpet, and steam your furniture. T = Talk to your doctor about getting help to quit. Your doctor can prescribe medication to help with withdrawal and suggest other alternatives. If you can't see a doctor, you can get many products over the counter at your local pharmacy or grocery store, including the nicotine patch, nicotine lozenges, and nicotine gum. Resources for Quitting Smoking: <https://www.[place].gov/documents/[facility]/Quit_Tobacco_Resources_for_patients_313 480_7.pdf> Supplementation: Take recommended dosages of Vitamin D and Calcium to help fortify your bones and help them to heal. See your health maintenance packet for dosages and recommended levels. DVT/VTE prophylaxis: You will be given compression stockings from the hospital. Wear these daily for the first two weeks after surgery. You may take them off at night. You may be prescribed a medication to help thin your blood. Take this as directed. If you are not prescribed this medication, early and frequent ambulation has been shown to be the best prophylaxis to deep vein thrombosis and sequelae related to this event. Discharge Disposition: HOME WITH HOME HEALTH SERVICES
--- NOTE | 2023-12-21 10:18 | P.PN ---
Subjective Progress Note Date: 12/21/23 Feels okay, neck pain minimal, no chest pain no nausea no vomiting no dizziness no shortness of breath. Objective - Vital Signs Vital signs: Vital Signs Temp 98.3 F 12/21/23 06:50 Pulse 59 L 12/21/23 06:50 Resp 14 12/21/23 06:50 BP 123/81 12/21/23 06:50 Pulse Ox 97 12/21/23 06:50 FiO2 Intake & Output 12/20/23 12/21/23 12/21/23 18:59 06:59 18:59 Intake Total 2850 480 Output Total 25 Balance 2825 480 Weight 59.3 kg Intake: IV 2850 Oral 480 Output: Estimated Blood Loss 25 Other: Voiding Method Toilet # Voids 1 2 - Exam Constitutional: No acute distress, conversant, pleasant Eyes: Anicteric sclerae, moist conjunctiva, no lid-lag, PERRLA ENMT: NC/AT,Oropharynx clear, no erythema, exudates Neck:Supple, FROM, no masses, or JVD, No carotid bruits; No thyromegaly Lungs: Clear to auscultation, Clear to percussion, Normal respiratory effort, no accessory muscle use Cardiovascular: Heart regular in rate and rhythm, No murmurs, gallops, or rubs no peripheral edema Abdominal: Soft Nontender, non distended, no guarding, no rebound or rigidity, Normoactive bowel sounds No hepatomegaly, No splenomegaly, No palpable mass No abdominal wall hernia noted Skin: Normal temperature, tone, texture, turgor, No induration No subcutaneous nodules, No rash, lesions, No ulcers Extremities:No digital cyanosis No clubbing, Pedal pulses intact and symmetrical Radial pulses intact and symmetrical Normal gait and station, No calf tenderness Psychiatric: Alert and oriented to person, place and time, Appropriate affect Intact judgement Neuro: Muscles Strength 5/5 in all 4 extremities, Sensation to light touch grossly present throughout, Cranial nerves II-XII grossly intact. No focal sensory deficits - Labs CBC & Chem 7: 12/21/23 05:05 12/21/23 05:05 Labs: Abnormal Lab Results - Last 24 Hours (Table) 12/21/23 12/21/23 Range/Units 05:05 05:05 RBC 3.57 L (3.80-5.40) m/uL Chloride 108 H (98-107) mmol/L Assessment and Plan Plan: Chronic conditions: Hypertension, GERD Status post cervical discectomy and fusion control as indicated Plan: Resume patient's home metoprolol, Prilosec, lisinopril, and Effexor Disposition: Home today.
[2023-12-21] MEDS ORDERED: lamoTRIgine 100 MG TAB PO SCH (21:00)
== END 2023-12-21 09:33 | disposition home or self-care (01) | DRG 472 ==
LOC: OR 09:23 → 4SSUR 13:50 → OR 12-21 11:43 → 4SSUR 12-21 11:43
PROVIDERS: ADMIT Orthopaedic Surgery; ATTEND Orthopaedic Surgery
PROC: 0RT30ZZ Resection of Cervical Vertebral Disc, Open Approach (ICD-10-PCS; principal; 2023-12-20 11:15)
PROC: 01N10ZZ Release Cervical Nerve, Open Approach (ICD-10-PCS; principal; 2023-12-20 11:15)
PROC: 00NW0ZZ Release Cervical Spinal Cord, Open Approach (ICD-10-PCS; principal; 2023-12-20 11:15)
PROC: 0RG20A0 Fusion of 2 or more Cervical Vertebral Joints with Interbody Fusion Device, Anterior Approach, Anterior Column, Open Approach (ICD-10-PCS; principal; 2023-12-20 11:15)
PROC: 0RG2070 Fusion of 2 or more Cervical Vertebral Joints with Autologous Tissue Substitute, Anterior Approach, Anterior Column, Open Approach (ICD-10-PCS; principal; 2023-12-20 11:15)
PROC: 4A11X4G Monitoring of Peripheral Nervous Electrical Activity, Intraoperative, External Approach (ICD-10-PCS; principal; 2023-12-20 11:15)
DX: M47.12 Other spondylosis with myelopathy, cervical region (principal); M50.022 Cervical disc disorder at C5-C6 level with myelopathy; M48.02 Spinal stenosis, cervical region; M43.12 Spondylolisthesis, cervical region; M50.122 Cervical disc disorder at C5-C6 level with radiculopathy; M47.22 Other spondylosis with radiculopathy, cervical region; M25.78 Osteophyte, vertebrae; I10 Essential (primary) hypertension; F32.A Depression, unspecified; F41.9 Anxiety disorder, unspecified; K21.9 Gastro-esophageal reflux disease without esophagitis; F17.200 Nicotine dependence, unspecified, uncomplicated; Z71.6 Tobacco abuse counseling; Z79.82 Long term (current) use of aspirin; Z79.891 Long term (current) use of opiate analgesic; Z79.1 Long term (current) use of non-steroidal anti-inflammatories (NSAID); Z79.899 Other long term (current) drug therapy; Z88.2 Allergy status to sulfonamides; Z88.5 Allergy status to narcotic agent
CPT/HCPCS: 72040; 72125; 80048; 85025; 86850; 86900; 86901